=== PATIENT | female | born 1985 | race Caucasian/White ===

== ENCOUNTER 2017-10-21 02:49 | Inpatient (IN) ==
--- OUTSIDE RECORDS SUMMARY | 2017-10-21 02:55 | External Medical Summary | Clinical Summary ---
:1985 Author Organization [facility] Address [address] [place] [id number] Phone Allergies Active Allergy Reactions Severity Noted Date Comments Penicillin G Hives/ GI distress Current Medications Prescription Sig. Disp. Refills Start Date End Date Status .Temporary Order (SEE VITS 0 0 04/17/2008 Active SIG FOR MEDICATION NAME) W-CA,FE,FA(<1MG): One orally daily .reconcile (MEDICATION No Sig 1 0 04/25/2013 Active LIST IMPORTED) Active Problems Not on file Immunizations Name Dates Previously Given Next Due DTaP 06/25/1991, 08/06/1987, 1986, 1986, 1986 Hepatitis B, NOS 09/20/1998, 04/14/1998, 03/09/1998 HiB (PRP-T) 02/02/1988 MMR 06/25/1991, 04/16/1987 Meningococcal Polysaccharide valent-4 04/27/2004 Diphtheria Toxoid Conjucate (Menactra) PPD Test 04/16/1987 Polio,NOS ([facility] registry) 06/25/1991, 08/06/1987, 1986, 1986 Td(adult), adsorbed 04/14/2001 Social History Tobacco Use Types Packs/Day Years Used Date Never Assessed Sex Assigned at Date Recorded Not on file Last Filed Vital Signs Vital Sign Reading Time Taken Blood Pressure 120/58 12/11/2008 1:15 PM [employer] Pulse - - Temperature - - Respiratory Rate - - Oxygen Saturation - - Inhaled Oxygen Concentration - - Weight 66 kg (145 lb 8 oz) 12/11/2008 1:15 PM [employer] Height - - Body Mass Index - - Plan of Treatment Health Maintenance Due Date Last Done Comments Varicella Vaccines (1 of 2 - 2 1999 Dose Adolescent Series) DTaP,Tdap,and Td Vaccines (6 - 04/15/2001 04/14/2001, 06/25/1991, Tdap) 08/06/1987, Additional history exists CERVICAL CANCER SCREENING 04/17/2011 04/17/2008 Influenza Vaccine (#1) 2017 Results Not on filefrom Last 3 Months
[2017-10-21] MEDS ORDERED: METHYLERGONOVINE 0.2 MG/ML INJECTION IM PRN (03:13)
[2017-10-21] MEDS ORDERED: CALCIUM CARBONATE Chewable 500mg TABLET PO PRN ×2 (03:13→10:49)
[2017-10-21] MEDS ORDERED: LR 1,000 ML IV PRN (03:13)
[2017-10-21] MEDS ORDERED: LIDOCAINE 1% (10mg/ml) 2mL INJ PF SDV ID PRN (03:13)
[2017-10-21] MEDS ORDERED: ACETAMINOPHEN 500 MG TABLET PO PRN ×2 (03:13→10:49)
[2017-10-21] MEDS ORDERED: MAG-AL + SIM ORAL LIQUID 30ml PO PRN ×2 (03:13→10:49)
[2017-10-21] MEDS ORDERED: CARBOPROST 250 MCG/ML INJECTION IM PRN (03:13)
[2017-10-21] MEDS: OXYTOCIN DRIP 30 UNIT/500 ML ML IV SCH ×3 (03:22→08:40)
[2017-10-21] MEDS ORDERED: HYDROCODONE/APAP 5mg/325mg TABLET PO PRN ×2 (03:41→13:30)
[2017-10-21] MEDS ORDERED: IBUPROFEN 800 MG TABLET PO PRN (03:42)
[2017-10-21 04:42] VITALS: O2SAT 99
[2017-10-21] MEDS ORDERED: HYDROCORTISONE 2.5% CREAM 30gm RECTALLY PRN (10:49)
[2017-10-21] MEDS ORDERED: DiphenhydrAMINE 25 MG CAPSULE PO PRN (10:49)
--- NOTE | 2017-10-21 10:52 | OB/GYN Progress Note ---
OB-PP Progress Note - General PPD0 Maternal Group B Strep: Negative Maternal blood type: A+ Maternal Rubella Status: Immune - Subjective Date: 10/21/17 Lochia: Minimal Pain: controlled Voiding: voiding Nausea or Vomiting Present: No - Objective Vital Signs: Last Vital Signs Temp 98.2 F 10/21/17 04:38 Pulse 83 10/21/17 08:07 Resp 18 10/21/17 08:07 BP 113/75 10/21/17 08:07 Pulse Ox 99 10/21/17 08:07 Urine Output: good General: alert and oriented Abdomen: fundus firm, non-tender Extremities: non-tender Edema: none Laboratory: Laboratory Results - last 24 hr 10/21/17 03:44 WBC 20.2 H RBC 3.83 L Hgb 10.4 L Hct 32.0 L MCV 83.6 MCH 27.2 MCHC 32.5 RDW Std Deviation 38.3 Plt Count 213 MPV 11.1 - Assessment Assessment: SP, - Plan Plan: routine care Expected date of discharge: 10/22/17
[2017-10-21] MEDS ORDERED: OXYTOCIN DRIP 30 UNIT/500 ML ML IV SCH (11:00)
[2017-10-21] MEDS: DOCUSATE CALCIUM 240 MG CAPSULE PO SCH (14:12)
[2017-10-21] MEDS: IBUPROFEN 800 MG TABLET PO PRN (14:12)
[2017-10-21 16:35] VITALS: RESP 16
--- NOTE | 2017-10-22 07:28 | Labor and Delivery Note ---
This is a delivery note for a patient of Dr. Castorena's. Date of Delivery: 10/21/2017 Ms. Martins was at [facility] earlier this evening with the complaint of contractions. On the monitor she showed in an irregular pattern. She had very minimal cervical progression. I recommended we have prolonged watching with p.oNelly Pollockien. She felt like she was stable and preferred to go home. She did so, and then came back to the ER doors delivering the head. Dr. Orozco, the emergency department doctor there, ran out. He reports putting slight pressure and the baby delivered in total. The Labor & Delivery nurses were there at that time. They were able to doubly clamp the cord and cut it. When I arrived the patient was in the bed on the Maternal Child Unit holding baby. This is a liveborn male with Apgars of 8/8/9. He weighed 8 pounds, 8.4 ounces. After a few moments the placenta delivered spontaneously, intact. It had a normal configuration and a normal-appearing three-vessel cord. There was a first-degree midline laceration that was repaired with a simple ligature of 3-0 Vicryl. Total blood loss is estimated at 200 ml although that is only an approximation based on what has been described. Mother and baby are doing well. [facility]
[2017-10-22] MEDS: IBUPROFEN 800 MG TABLET PO PRN (07:58)
[2017-10-22] MEDS: DOCUSATE CALCIUM 240 MG CAPSULE PO SCH (07:58)
[2017-10-22 08:02] VITALS: BP 110/66; PULSE 78; TEMP 98
--- NOTE | 2017-10-22 08:21 | OB/GYN Progress Note ---
OB-PP Progress Note - General PPD1 Maternal Group B Strep: Negative Maternal blood type: A+ Maternal Rubella Status: Immune - Subjective Date: 10/22/17 Lochia: Moderate Pain: controlled (Using Ibuprofen 800mg po tid prn pain) Voiding: voiding Nausea or Vomiting Present: No - Objective Vital Signs: Last Vital Signs Temp 98.0 F 10/22/17 07:55 Pulse 78 10/22/17 07:55 Resp 16 10/22/17 07:55 BP 110/66 10/22/17 07:55 Pulse Ox 99 10/21/17 22:30 Urine Output: good General: alert and oriented Abdomen: fundus firm Extremities: non-tender - Assessment Assessment: - Plan Plan: routine care, discharge home
== END 2017-10-22 12:29 | disposition home or self-care (01) | DRG 775 ==
LOC: OBOBS 02:49 → MC 02:51
PROVIDERS: ADMIT Obstetrics & Gynecology; ATTEND Obstetrics & Gynecology